=== PATIENT | male | born 1995 | race Caucasian/White ===

== ENCOUNTER → 2018-04-28 08:31 | Outpatient (CLI) | payer OTHER | END | disposition home or self-care (01) | LOC: D.MRI 08:00 | DX: M25.372 Other instability, left ankle (principal) ==

== ENCOUNTER 2018-05-27 06:03 | Day surgery (SDC) | payer OTHER ==
[~2018-05-27] VITALS: Ht 172.7 cm; Wt 72.6 kg
[~2018-05-27 06:03] MED LIST: IBUPROFEN200 MG PO
[2018-05-27 07:14] VITALS: BP 117/82; Ht 172.7 cm; Wt 72.6 kg
[2018-05-27] MEDS ORDERED: NORCO 10-325 TA1 TAB PO (10:04)
--- NOTE | 2018-05-27 11:05 | NUR ---
PATIENT SERVED A TRAY, ABLE TO TOLERATE FULL LIQUIDS.
--- NOTE | 2018-05-27 12:14 | OP ---
PATIENT NAME: FLORENCIO HOFFMAN MEDICAL RECORD: [id number] :95 LOCATION:[facility] ADMISSION DATE: SURGEON: ROSIE BONNER MD DATE OF OPERATION: 05/27/2018 PREOPERATIVE DIAGNOSIS: Chronic right ankle instability. POSTOPERATIVE DIAGNOSIS: Chronic right ankle instability. PROCEDURES: 1. Brostrom procedure of the right ankle for stabilization. 2. Internal bracing. SURGEON: Rosie Bonner MD ANESTHESIA: General. INTRAOPERATIVE COMPLICATIONS: None. SUMMARY OF PATHOLOGIC FINDINGS: AITF and calcaneofibular ligaments had been torn, consistent with preoperative MRI. Both were reconstructed with good overall tightening of the lateral side. OPERATIVE SUMMARY IN DETAIL: After obtaining the appropriate preoperative orthopedic surgery consent as well as anesthetic consultation, evaluation, and clearance, the patient was brought to the operating room and placed on the operating table in the supine position. After general laryngeal mask was administered, tourniquet was placed about the proximal aspect of the right lower extremity. The patient was then placed in a left lateral decubitus position. All pressure points were well padded. He was held firmly to the operating table using vacuum pack suction system. The right lower extremity was prepped and draped in routine sterile fashion. Leg was elevated and exsanguinated. Tourniquet was inflated to 350 mmHg. Posterior one-third incision was made curvilinear across the anterior aspect for good visualization. Dissection was carried down. The torn ligament could be seen and was saved for later reapproximation. After appropriate dissection down to the superior aspect of the calcaneus underneath the talocalcaneal joint as well as good visualization of the nonarticular side portion of the talus was seen, the internal brace was then placed first, starting at the calcaneus and then anchoring to the distal fibula using the hemostat to avoid over tightening. These tails were then taken down to the calcaneus to recreate the calcaneal fibular ligament again using the hemostat to avoid over tightening. These were then stabilized with a 4.75 SwiveLock. Having completed this, the residual tails from the first suture were taken through the AITF in separate planes and then anchored to the fibula using 3.5 PushLocks from [employer]. Lastly, a single tail from the posterior was then again taken through the residual calcaneal fibular ligament and it was likewise anchored to the fibula, albeit with a 3.5 SwiveLock from [employer]. The tension was checked and it was not over tightened but tightened well. At this point, a #2-0 FiberWire was utilized to reapproximate periosteum that had been taken down in an imbricated style, [id number], to further be sure that good soft tissue coverage was achieved over the repair and bony interface. A 2-0 Vicryl was then followed by 4-0 Prolene in running fashion. Sterile dressings were applied. Tourniquet was deflated. Then, an L&U splint was placed. The patient was awakened and taken to recovery room in stable condition. All final needle and sponge counts were correct. OPERATIVE REPORT [id number] FLORENCIO HOFFMAN TRANSINT:[id number] Voice Confirmation ID: [id number] DOCUMENT ID: [id number] HA MARTE, ROSIE JULES at 1214 CC: [id number] DICTATION DATE: 05/27/18 1009 HVAC TECHNICIAN RESIDENTIAL: 05/27/18 1105 [facility] [address] [id number]
--- NOTE | 2018-05-27 12:26 | NUR ---
PATIENT LEFT THE FLOOR VIA WHEELCHAIR, DISCHARGE INSTRUCTIONS GIVEN. PATIENT STATED UNDERSTANDING.
== END 2018-05-27 12:26 | disposition home or self-care (01) ==
LOC: D.OPS 06:03 → D.PAN 12:15 → D.OPS 12:15
DX: M25.371 Other instability, right ankle (principal)

== ENCOUNTER → 2018-06-24 13:43 | Outpatient (CLI) | payer OTHER ==
[2018-05-27 07:14] VITALS: BMI 24.3
[~2018-06-24 13:43] MED LIST changes: +NORCO 10-325 TA1 TAB PO
== END | disposition home or self-care (01) ==
LOC: D.US 13:30
DX: R60.0 Localized edema (principal); M79.662 Pain in left lower leg

== ENCOUNTER → 2019-01-28 07:31 | Outpatient (CLI) | payer OTHER ==
[2018-05-27 07:14] VITALS: BMI 24.3
== END | disposition home or self-care (01) ==
LOC: D.MRI 07:31
PROVIDERS: ATTEND Clinical Nurse Specialist Family Health
DX: M25.572 Pain in left ankle and joints of left foot (principal)

== ENCOUNTER → 2020-01-23 15:02 | Outpatient (CLI) | payer OTHER ==
[2018-05-27 07:14] VITALS: BMI 24.3
== END | disposition home or self-care (01) ==
LOC: D.MRI 15:02
PROVIDERS: ATTEND Orthopaedic Surgery
DX: M25.372 Other instability, left ankle (principal)